=== PATIENT | female | born 1990 | race Hispanic/Latino ===

== ENCOUNTER → 2024-03-22 | Day surgery (SDC) | payer OTHER ==
[~2024-03-22] MED LIST: BUPIVACAINE HCL 0.5% INJ 30 ML VIAL INJ ONE; DEXAMETHASONE SOD PHOS INJ 4 MG/ML SDV ONE; FENTANYL CITRATE/PF 100MCG/2 ML INJ ONE; KETOROLAC TROMETHAMINE 30 MG/ML VIAL ONE; LIDOCAINE HCL 2% LOCAL INJ 5 ML SDV VIAL INJ ONE; NEOSTIGMINE 1 MG/ML 10ML VIAL ONE; ONDANSETRON HCL INJ 2MG/ML 2ML 2 MG/ML VIAL ONE; PROPOFOL IV EMULSION 10 MG/ML 20 ML VIAL ONE; SEVOFLURANE INHAL SOLN 250 ML PEN BTL ONE
[2024-03-22] MEDS: LACTATED RINGER'S 1,000 ML ONE (11:55)
[2024-03-22 13:41] VITALS: TEMP 97.5
[2024-03-22 14:40] VITALS: BP 121/78; PULSE 65; RESP 17; O2SAT 99
== END | disposition home or self-care (01) ==
LOC: OR 10:30
PROVIDERS: ATTEND Podiatrist Foot & Ankle Surgery
DX: D48.19 Other specified neoplasm of uncertain behavior of connective and other soft tissue (principal); M21.622 Bunionette of left foot; M20.42 Other hammer toe(s) (acquired), left foot; B07.0 Plantar wart
CPT/HCPCS: 11422; 28110; 28285; 76000; 81025; 88304; C1762; J0690; J1100; J1885; J2001; J2405; J2704; J2710; J3010; J7121